=== PATIENT | female | born 1970 | race Two or more races ===

== ENCOUNTER 2021-12-01 20:24 | Emergency (ER) | payer OTHER ==
[~2021-12-01] VITALS: Ht 167.6 cm; Wt 72.1 kg
[2021-12-01 21:59] VITALS: BP 128/79
--- NOTE | 2021-12-01 22:16 | NUR ---
Patient discharged to home in stable condition. Written and verbal after care instructions given. Patient verbalizes understanding of instruction.
== END 2021-12-01 22:16 | disposition home or self-care (01) ==
LOC: ER 20:48
DX: T18.9XXA Foreign body of alimentary tract, part unspecified, initial encounter (principal); I10 Essential (primary) hypertension; Z60.2 Problems related to living alone; X58.XXXA Exposure to other specified factors, initial encounter; Y93.89 Activity, other specified; Y92.89 Other specified places as the place of occurrence of the external cause; Y99.8 Other external cause status